=== PATIENT | male | born 1950 | race Caucasian/White ===

== ENCOUNTER 2019-05-07 08:14 | Emergency (ER) | payer MEDICARE ==
[2019-05-07] MEDS ORDERED: Acetaminophen 500 MG TAB ONE (08:51)
[2019-05-07] MEDS ORDERED: Amoxicillin/Potassium Clav 875 MG TAB ONE (08:51)
[2019-05-07] MEDS ORDERED: Lidocaine 1% w/Epinephrine 1:100K 20 ML VIAL ONE (08:52)
[2019-05-07] MEDS ORDERED: Ibuprofen 800 MG TAB ONE (08:54)
== END 2019-05-07 09:50 | disposition home or self-care (01) ==
LOC: SCSER 08:14
DX: S01.01XA Laceration without foreign body of scalp, initial encounter (principal); E11.9 Type 2 diabetes mellitus without complications; I10 Essential (primary) hypertension; Z79.84 Long term (current) use of oral hypoglycemic drugs; Z79.899 Other long term (current) drug therapy; W26.8XXA Contact with other sharp object(s), not elsewhere classified, initial encounter
CPT/HCPCS: 12013; J2001

== ENCOUNTER 2019-05-14 10:29 | Emergency (ER) | payer MEDICARE | END 2019-05-14 11:06 | disposition home or self-care (01) | LOC: SCSER 10:29 | DX: S01.01XD Laceration without foreign body of scalp, subsequent encounter (principal); E11.9 Type 2 diabetes mellitus without complications; I10 Essential (primary) hypertension; Z79.84 Long term (current) use of oral hypoglycemic drugs; Z79.899 Other long term (current) drug therapy | CPT/HCPCS: 99282 ==

== ENCOUNTER 2019-05-18 11:03 | Emergency (ER) | payer MEDICARE ==
[2019-05-18] MEDS ORDERED: Bacitracin 1 PK ONE (12:10)
== END 2019-05-18 12:09 | disposition home or self-care (01) ==
LOC: SCSER 11:03
DX: S01.01XD Laceration without foreign body of scalp, subsequent encounter (principal); E11.9 Type 2 diabetes mellitus without complications; I10 Essential (primary) hypertension; Z79.84 Long term (current) use of oral hypoglycemic drugs; Z79.899 Other long term (current) drug therapy

== ENCOUNTER 2019-05-21 16:52 | Emergency (ER) | payer MEDICARE ==
[2019-05-21 17:49] LABS: Bilirubin Negative (Negative); Blood, Urine Trace (Negative); Clarity Clear (Clear); Glucose, Urine (Dipstick) Negative (Negative); Leukocyte Negative (Negative); Nitrite Negative (Negative); Protein, Urine (Dipstick) Negative (Neg-Trace)
[2019-05-21 17:55] LABS: Bacteria/HPF None Seen HPF (None Seen); RBC/HPF 0-3 HPF (0-3); Squamous Epithelial 0-3 HPF (0-3); WBC/HPF 0-3 HPF (0-3)
[2019-05-21] MEDS ORDERED: cefTRIAXone\\ROCEPHIN 1 GM VIAL ONE (19:10)
[2019-05-21] MEDS ORDERED: Lidocaine 1% PF 5 ML VIAL ONE (19:10)
--- NOTE | 2019-05-21 19:55 | ULT ---
TESTICULAR/SCROTAL ULTRASOUND: 05/21/19 COMPARISON: None. HISTORY: Testicular pain that started yesterday about 3:30 and has been getting progressively worse. TECHNIQUE: Multiplanar gipson scale and color Doppler images were obtained in a testicular/scrotal ultrasound. Spe ctral analysis of the Doppler waveforms of the testicles were performed. FINDINGS: The bilateral testicles are normal in echogenicity without suspicious lesions and demonstrate normal internal flow. The bilateral epididymi are enlarged and heterogeneous in appearance with increased flow. There are s mall reactive hydroceles, right greater than left. IMPRESSION: Bilateral epididymitis. POS: [facility]
== END 2019-05-21 19:33 | disposition home or self-care (01) ==
LOC: SCSER 16:52
DX: N45.1 Epididymitis (principal); I10 Essential (primary) hypertension; E11.9 Type 2 diabetes mellitus without complications
CPT/HCPCS: 76870; 81003; 81015; 87086; 93976; 96372; J0696; J2001

== ENCOUNTER 2020-01-14 06:57 | Outpatient (CLI) | payer MEDICARE, OTHER ==
[2020-01-14 12:27] LABS: Hemoglobin 15.3 g/dL (14.0-18.0); Mean Corpuscular HGB CONC 33.8 g/dL (32.0-36.0); Mean Corpuscular Hemoglobin 30.4 pg (27.0-31.0); Mean Platelet Volume 7.7 fL (7.4-10.4); Platelet Count 155 thou/uL (130-400); RBC Distribution Width 12.6 % (11.5-14.5); Red Blood Cell (RBC) Count 5.02 mill/uL (4.70-6.10); White Blood Cell (WBC) Count 6.7 thou/uL (4.8-10.8)
[2020-01-14 12:30] LABS: Bacteria/HPF None Seen HPF (None Seen); Bilirubin Negative (Negative); Blood, Urine Negative (Negative); Clarity Clear (Clear); Glucose, Urine (Dipstick) Normal (Negative); Leukocyte Negative Leu/uL (Negative); Nitrite Negative (Negative); Protein, Urine (Dipstick) Negative (Neg-Trace); RBC/HPF 0-3 HPF (0-3); Squamous Epithelial None Seen HPF (0-3); Urobilinogen Normal mg/dL (Less than 2); WBC/HPF 0-3 HPF (0-3)
[2020-01-14 12:32] LABS: Prothrombin Time 12.8 sec (12.0-14.7)
[2020-01-14 12:33] LABS: PTT 34.1 SEC (22.9-36.1)
[2020-01-14 12:48] LABS: Anion Gap 13 mmol/L (10-20); BUN (Urea Nitrogen) 14 mg/dL (8.4-25.7); Calc. Creatinine Clearance 0 mL/min (70-130); Calcium 8.8 mg/dL (7.8-10.44); Carbon Dioxide 24 mmol/L (23-31); Chloride 107 mmol/L (98-107); Estimated GFR-MDRD 78; Glucose 100 mg/dL (83-110); Potassium 3.8 mmol/L (3.5-5.1); Sodium 140 mmol/L (136-145)
[2020-01-14 18:36] LABS: SARS-CoV-2 MS2 Positive; SARS-CoV-2 N Gene Negative; SARS-CoV-2 S Gene Negative; SARS-CoV-2 orf1ab Negative
--- NOTE | 2020-01-14 22:03 | EKG ---
Test Reason : Blood Pressure : / mmHG Vent. Rate : 066 BPM Atrial Rate : 066 BPM P-R Int : 204 ms QRS Dur : 114 ms QT Int : 428 ms P-R-T Axes : 056 091 038 degrees QTc Int : 448 ms Sinus rhythm with marked sinus arrhythmia Rightward axis Borderline ECG No previous ECGs available Confirmed by Dwight SOUZA ([id number]) on 01/14/2020 10:03:01 PM Referred By: DENISSE Confirmed By:Dwight SOUZA
== END 2020-01-14 06:58 | disposition home or self-care (01) ==
LOC: LABBT 06:57
PROVIDERS: ATTEND Urology
DX: Z01.818 Encounter for other preprocedural examination (principal); Z11.59 Encounter for screening for other viral diseases; N40.0 Benign prostatic hyperplasia without lower urinary tract symptoms
CPT/HCPCS: 80048; 81001; 85027; 85610; 85730; 87086; 93005; U0003; 87635; 93010

== ENCOUNTER 2020-01-19 06:20 | Day surgery (SDC) | payer MEDICARE, OTHER ==
[2020-01-14 10:31] VITALS: BMI 27.7
[2020-01-19] MEDS ORDERED: Levofloxacin 500 mg/D5W 100 ml Premix Bag ONE (06:58)
[2020-01-19] MEDS ORDERED: Midazolam HCl 2 mg/2 ml Vial ONE (08:08)
[2020-01-19] MEDS ORDERED: Fentanyl 100 MCG/2 ML VIAL ONE (08:08)
[2020-01-19] MEDS ORDERED: Oxybutynin 5 MG TAB ONE (09:08)
[2020-01-19] MEDS ORDERED: Ketorolac Tromethamine 30 MG/ML VIAL ONE (09:08)
[2020-01-19] MEDS ORDERED: Phenazopyridine HCl 97.5 MG TABLET ONE (09:09)
--- NOTE | 2020-01-19 09:38 | OP ---
DATE OF PROCEDURE: 01/19/2020 PREOPERATIVE DIAGNOSIS: Enlarged prostate with lower urinary tract symptoms. POSTOPERATIVE DIAGNOSIS: Enlarged prostate with lower urinary tract symptoms. PROCEDURES PERFORMED: Cystoscopy with placement of UroLift device - 6 implants. ANESTHESIA: TIVA. COMPLICATIONS: None. ESTIMATED BLOOD LOSS: Minimal. SPECIMEN: None. DESCRIPTION OF PROCEDURE: After informed consent, the patient was taken to the operating room, transferred to the table under his own power. Anesthesia was established. A time-out was performed showing the correct patient, site, and procedure. He was prepped and draped in the lithotomy position. A 20-[place] Helenian rigid cystoscope was advanced through the urethra noting a normal course and caliber of the urethra into the bladder. Upon passing to the prostate, I noted large coapting lateral lobes without obstructing bladder neck or median lobe. The bladder was systematically examined noting normal ureters bilaterally, no mucosal abnormalities, moderate trabeculation without diverticula. The bridge was then replaced with the UroLift delivery device. The first treatment side was the patient's left side approximately 2 cm distal to the bladder neck. The distal tip of the delivery device was then angled laterally approximately 20 degrees of this position to compress the lateral lobe. The trigger was pulled, thereby deploying a needle containing the implant through the prostate. The needle was then retracted, allowing one and the implant to be delivered to the capsular surface of the prostate. The implant was then tensioned to assure capsular seeding and removal of slack monofilament. The device was then angled back towards midline and slowly advanced proximally about 3 to 4 mm until cystoscopic verification of the monofilament being centered in the delivery bay. The urethral end piece was then affixed to the monofilament thereby tailoring the size of the implant. Excess filament was then severed. The delivery device was then readvanced into the bladder. The delivery device then replaces the cystoscope and bridge and the implant location and opening effect was confirmed cystoscopically. The same procedure was then repeated on the right side near the bladder neck deploying the second implant. Two additional implants 3rd and 4th were delivered just proximal to the verumontanum, first on the left and then the right following a similar technique. The final two implants, 5th and 6th were placed in the mid prostate, also left and then right side following a similar technique once again. The obturator was then replaced and cystoscopy revealed no further obstruction with an excellent anterior channel. There was no active bleeding. The bladder was then drained and refilled with about 100 to 150 mL of saline. The patient was then awoken from anesthesia, transferred back to his hospital bed and taken to PACU in stable condition, where he was discharged home after recovery. Job ID: [id number]
[2020-01-19] MEDS ORDERED: Morphine 2 MG/ML SYRINGE ONE (09:47)
[2020-01-19] MEDS ORDERED: PROPOFOL 200 MG/20 ML VIAL ONE (10:36)
[2020-01-19] MEDS ORDERED: HYDROcodone/Acetaminophen 5/325 mg Tablet ONE (10:50)
== END 2020-01-19 11:15 | disposition home or self-care (01) ==
LOC: SDC 06:20
PROVIDERS: ATTEND Urology
PROC: 0T7D8DZ Dilation of Urethra with Intraluminal Device, Via Natural or Artificial Opening Endoscopic (ICD-10-PCS; principal; 2020-01-19)
DX: N40.1 Benign prostatic hyperplasia with lower urinary tract symptoms (principal); N13.8 Other obstructive and reflux uropathy; R31.29 Other microscopic hematuria; M19.90 Unspecified osteoarthritis, unspecified site; L93.0 Discoid lupus erythematosus; Z79.84 Long term (current) use of oral hypoglycemic drugs; Z79.899 Other long term (current) drug therapy; Z88.1 Allergy status to other antibiotic agents; Z88.2 Allergy status to sulfonamides; Z91.011 Allergy to milk products; Z91.041 Radiographic dye allergy status
CPT/HCPCS: C1889; J1885; J1956; J2250; J2270; J2704; J3010